=== PATIENT | female | born 1970 | race Caucasian/White ===

== ENCOUNTER 2019-07-18 05:42 | Day surgery (SDC) | payer OTHER, SELFPAY ==
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
[2019-07-18 06:10] VITALS: BP 152/76; PULSE 89; RESP 16; TEMP 35.9; O2SAT 94; BMI 52.9
[2019-07-18 06:14] LABS: Internal QC Validated? YES +Cl - CLEAR BKGD; Pregnancy, Urine Negative Negative
[2019-07-18] MEDS: Lactated Ringers 1,000 ML 100 ML IV ×2 (06:37→08:15)
[2019-07-18] MEDS: Bupiv/Epi 0.5% Mpf 30 ML Vial (08:00)
[2019-07-18] MEDS: Epinephrine (1 mg/ml) 1 MG/ML VIAL (08:00)
--- NOTE | 2019-07-18 08:30 | PCM.OPRPT ---
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 Surgery/Procedure Performed:: Diagnostic and Operative arthroscopy left knee Description of Surgical Findings:: Primary Surgeon/Physician: Rohan Sun php lamp developer: php lamp developer: Pre-Operative Diagnosis: Internal Derangement left knee Post-Operative Diagnosis:MMT, Grade 3 and 4 chondromalacia Medial compartment and PFJ Surgery/Procedure Performed: Diagnostic and Operative arthroscopy with partial medial meniscectomy and chondroplasty of the Medial compartment and PFJ Estimated Blood Loss: minimal Specimen's Removed: none Type of Anesthesia: general ASA Class: 3 Indications: [ ] Patient has failed conservative measures and at this point has elected to undergo the above procedure. Procedure Description: The patient was greeted in the preoperative area. The [left ] knee was marked with surgical marker. Preoperative antibiotics were administered. The patient was then taken to the operating suite and placed in a supine position on operating room table. After adequate anesthesia was obtained and airway was secured the leg was placed in the arthroscopy leg weeks. Leg was then prepped and draped in usual sterile fashion. Surgical timeout was performed and confirmed with all present and surgery was commenced. Standard arthroscopy portals were pre-injected with .5% Marcaine with epinephrine and the lateral portal was established. The diagnostic arthroscopy was begun. There was diffuse Grade 3 and 4 chondromalacia of the patella and trochlear groove. The medial compartment was entered and the medial portal was established. The medial meniscus had a multilayered tear in the posterior horn emanating to the middle 1/3 and extending to the periphery of the meniscus. There was diffuse Grade 3 and grade 4 chondromalacia of both the medial tibia and medial femoral condyle. The ACL and PCL were probed and found to be intact. There was no meniscus tear or surface cartilage damage in the lateral compartment. A combination of straight and angled basket punches were used to perform a partial medial meniscectomy. The meniscal fragments were then removed with a shave and the shaver was used to smooth the meniscus to a firm and stable rim. The shaver was then used to perform a chondroplasty in the medial compartment and the PFJ. Rough and delaminated cartilage was removed and smoothed down. At this point all instruments were removed. Arthroscopic portals were closed in a standard fashion. 30 cc of 0.5% Marcaine was then injected into the knee. Well-padded nonadherent dressing was applied and secured with an Nick wrap. The patient was taken to the recovery room in stable condition. Type of Anesthesia:: General Anesthesiologist: Jeremy Bower - Admit VTE Documentation VTE Present on Admission: No VTE Mechan Device Prophylaxis: SCD's, Thigh High HECTOR Hose VTE Pharm Prophylaxis ordered?: No Reason prophylaxis not ordered:: Treatment Not Indicated
[2019-07-18 08:33] VITALS: BP 152/76; BP 163/80; PULSE 74; RESP 16; TEMP 37.1; O2SAT 95
[2019-07-18 08:48] VITALS: BP 145/77; BP 152/76; PULSE 80; RESP 16; O2SAT 97
[2019-07-18 09:00] VITALS: BP 145/77; BP 152/76; PULSE 72; RESP 16; O2SAT 95
[2019-07-18 09:18] VITALS: BP 145/69; BP 152/76; PULSE 78; RESP 18; TEMP 37.2; O2SAT 94
[2019-07-18 10:36] VITALS: BP 143/86; BP 152/76; PULSE 71; RESP 16; TEMP 36.3; O2SAT 16
== END 2019-07-18 10:37 | disposition home or self-care (01) ==
LOC: SDC 05:46 → AC 05:47
PROVIDERS: Anesthesiology; PCP Family Medicine; Referring Provider Orthopaedic Surgery; Visit Provider Orthopaedic Surgery
PROC: (CPT 29870; principal; 2019-07-18 06:55)
DX: S83.242A Other tear of medial meniscus, current injury, left knee, initial encounter (principal); X58.XXXA Exposure to other specified factors, initial encounter; Y93.89 Activity, other specified; Y92.810 Car as the place of occurrence of the external cause; M17.12 Unilateral primary osteoarthritis, left knee; I25.10 Atherosclerotic heart disease of native coronary artery without angina pectoris; I05.9 Rheumatic mitral valve disease, unspecified; I25.2 Old myocardial infarction; E66.9 Obesity, unspecified; Z68.43 Body mass index [BMI] 50.0-59.9, adult
CPT/HCPCS: 01400; 29881; 81025; J7120; J2405